=== PATIENT | female | born 1995 | race Caucasian/White ===

== ENCOUNTER → 2018-11-12 08:39 | Outpatient (CLI) | payer OTHER, MEDICAID, SELFPAY ==
[2018-11-12 17:40] LABS: Urine N gonorrhoeae NOT DETECTED
[2018-11-12 17:44] LABS: Urine Chlamydia NOT DETECTED
== END ==
PROVIDERS: PCP Specialist; Visit Provider Specialist
DX: Z34.83 Encounter for supervision of other normal pregnancy, third trimester (principal); Z3A.29 29 weeks gestation of pregnancy
CPT/HCPCS: 87491; 87591

== ENCOUNTER → 2018-12-26 13:51 | Outpatient (CLI) | payer OTHER, MEDICAID, SELFPAY ==
[2018-12-27 14:30] LABS: Strep Grp B PCR POS for Grp B Strep
== END ==
PROVIDERS: PCP Specialist; Visit Provider Specialist
DX: Z34.83 Encounter for supervision of other normal pregnancy, third trimester (principal)
CPT/HCPCS: 87653

== ENCOUNTER 2019-01-11 20:27 | Outpatient (CLI) | payer OTHER, MEDICAID, SELFPAY ==
--- NOTE | 2019-01-11 22:00 | PM.OBTRLD ---
Visit Information Visit Information Date of evaluation: 01/11/19 Primary OB Provider: Bette Carter On-call OB Provider: Nilsa Silva Reason for Evaluation: Yes rule out labor PFSH Social History Smoking Status: Current some day smoker Social History Smoking Status: Current some day smoker Evaluation Evaluation Baseline heart rate: 135 Variability: Moderate (11-25) monitor accelerations: Present monitor decelerations: Absent Contraction Frequency (minutes): 10 Uterine Contraction Intensity: Mild Category of Tracing: I Diagnosis, Plan/Disposition Final Diagnosis (1) 38 weeks gestation of : Current Visit: No Status: Acute Plan/Disposition Plan: 23 year old at 38+3 weeks who came in for a labor check. Contractions were infrequent and irregular. NST reactive. Follow up as scheduled. OB Disposition: home
== END 2019-01-11 21:30 | disposition home or self-care (01) ==
LOC: OB 01-13 06:56
PROVIDERS: PCP Specialist; Visit Provider Family Medicine
DX: O47.1 False labor at or after 37 completed weeks of gestation (principal); Z3A.38 38 weeks gestation of pregnancy
CPT/HCPCS: 59025; G0378; G0379

== ENCOUNTER 2019-01-12 05:57 | Observation (INO) | payer OTHER, MEDICAID, SELFPAY ==
--- NOTE | 2019-01-12 06:24 | PM.OBTRLD ---
Visit Information Visit Information Date of evaluation: 01/12/19 Primary OB Provider: Bette Carter Reason for Evaluation: Yes rule out labor PFSH Social History Smoking Status: Current some day smoker Social History Smoking Status: Current some day smoker Exam Vital Signs (past 8 hours): Blood pressure 124/82, pulse of 83 Evaluation Evaluation Baseline heart rate: 120 Variability: Moderate (11-25) monitor accelerations: Present monitor decelerations: Absent Contraction Frequency (minutes): 5 Uterine Contraction Intensity: Mild Category of Tracing: I Cervical dilation (cm): 2 Cervical effacement (%): 75 station: -1 Diagnosis, Plan/Disposition Final Diagnosis (1) Premature uterine contractions: Current Visit: Yes Status: Acute (2) 38 weeks gestation of : Current Visit: Yes Status: Acute Plan/Disposition Plan: Patient likely in prodrome labor she will walk for an hour or so and return OB Disposition: home
== END 2019-01-12 09:15 | disposition home or self-care (01) ==
PROVIDERS: Admitting Provider Specialist; PCP Specialist; Visit Provider Specialist
DX: O47.9 False labor, unspecified (principal); Z3A.38 38 weeks gestation of pregnancy
CPT/HCPCS: 59025; 59050; G0378; G0379

== ENCOUNTER 2019-01-12 15:08 | Observation (INO) | payer OTHER, MEDICAID, SELFPAY ==
--- NOTE | 2019-01-12 16:25 | PM.OBTRLD ---
Visit Information Visit Information Date of evaluation: 01/12/19 Primary OB Provider: Bette Carter On-call OB Provider: Consuelo Young Reason for Evaluation: Yes rule out labor PFSH Social History Smoking Status: Current some day smoker Social History Smoking Status: Current some day smoker Evaluation Evaluation Baseline heart rate: 130 Variability: Moderate (11-25) monitor accelerations: Present monitor decelerations: Absent Contraction Frequency (minutes): 6 Category of Tracing: I Cervical dilation (cm): 2 Cervical effacement (%): 50 station: -2 Diagnosis, Plan/Disposition Final Diagnosis (1) 38 weeks gestation of : Current Visit: No Status: Acute (2) Premature uterine contractions: Current Visit: No Status: Acute Plan/Disposition OB Disposition: home
== END 2019-01-12 17:10 | disposition home or self-care (01) ==
PROVIDERS: Admitting Provider Family Medicine; PCP Specialist; Visit Provider Family Medicine
DX: O47.9 False labor, unspecified (principal); Z3A.38 38 weeks gestation of pregnancy
CPT/HCPCS: 59025; 59050; G0378; G0379

== ENCOUNTER 2019-01-15 06:51 | Inpatient (IN) | payer OTHER, MEDICAID, SELFPAY ==
[2019-01-15 09:12] LABS: Add Manual Diff / Slide Review NO; Basophils Absolute Auto 100 /uL (0-100); Basophils Percent Auto 0.6 % (0-2); Eosinophils Absolute Auto 100 /uL (0-450); Eosinophils Percent Auto 1.1 % (2-4); Hematocrit 40.8 % (36-46); Hemoglobin 13.6 g/dL (12.0-16.0); Lymphocytes Absolute Auto 1900 /uL (1100-4500); Lymphocytes Percent Auto 22.3 % (25-40); Mean Corpuscular HGB Conc 33.4 % (30-36); Mean Corpuscular Hemoglobin 28.6 PG (26-34); Mean Corpuscular Volume 85.5 fL (80-100); Monocytes Absolute Auto 500 /uL (0-900); Monocytes Percent Auto 5.9 % (3-14); Neutrophils Absolute Auto 5800 /uL (1500-7000); Neutrophils Percent Auto 70.1 % (50-75); Platelet Count 271 X10^3/uL (150-400); Red Blood Cell Count 4.77 X10^6/uL (4.0-5.2); Red Cell Distribution Width 13.3 % (11.6-14.8); White Blood Cell Count 8.3 X10^3/uL (4.5-11.0)
[2019-01-15] MEDS: LACTATED RINGERS 1,000 ML 100 ML IV ×3 (09:21→13:34)
[2019-01-15] MEDS: PENICILLIN G POTASSIUM 5,000,000 UNIT in DEXTROSE 5% IN WATER 250 ML IV (09:30)
[2019-01-15] MEDS: OXYTOCIN PREMIX 30 UNIT/500 ML PLAST..BAG IV (09:35)
[2019-01-15 10:34] VITALS: BP 120/79
[2019-01-15] MEDS: PENICILLIN G POTASSIUM 3,000,000 UNIT/50 ML FROZ.PIGGY 100 UNIT IV (13:28)
--- NOTE | 2019-01-15 18:34 | P.HPOB_ITS ---
OB HPI Date/Time Date of admission: 01/15/19 Date Patient Seen: 01/15/19 Time Patient Seen: 09:00 History of Present Condition Chief complaint: labor & delivery : 3 Para: 1 Estimated Date of Delivery: 01/22/19 Estimated Gestational Age (weeks): 39 Narrative: Yael Klein is a 23 year old female admitted for induction for distance from the hospital Indications Indication for induction OB: maternal distance History of Present care: good care, initiated at week # (11), number of visits (9) and pounds weight gain (32) Dating criteria: based on 1st trimester US only Ultrasounds: normal mid trimester US Obstetrical complications: none Medical complications: none Preadmission Labs Blood type: O (+) positive -: Antibody screen: negative, GBS status: positive, HBsAG: negative, HIV: negative and RPR/VDLR: negative -: Chlamydia screen: not detected and Gonorrhea screen: not detected -: Rubella: immune and Varicella: immune HCAB: negative PAP: Normal Quad screen: Normal 1 hr GTT: 157 3 hr GTT: 1 hr (136), 2 hr (126) and 3 hr (77) Fasting blood glucose: 91 Prior (ies) History: 12/2014 39 week gestation female 7 lb 11 oz vaginal delivery with epidural Evaluation Evaluation Baseline heart rate: 145 Variability: Moderate (11-25) monitor accelerations: Present monitor decelerations: Absent Contraction Frequency (minutes): 0 Category of Tracing: I Cervical dilation (cm): 2 Cervical effacement (%): 80 station: -4 Laboratory results: Laboratory Tests 01/15/19 01/15/19 08:50 08:50 WBC 8.3 RBC 4.77 Hgb 13.6 Hct 40.8 MCV 85.5 MCH 28.6 MCHC 33.4 RDW 13.3 Plt Count 271 Neut % (Auto) 70.1 Lymph % (Auto) 22.3 L [place] % (Auto) 5.9 Eos % (Auto) 1.1 L Baso % (Auto) 0.6 Neut # (Auto) 5800 Lymph # (Auto) 1900 [place] # (Auto) 500 Eos # (Auto) 100 Baso # (Auto) 100 Blood Type O Positive Antibody Screen Negative [facility] Social History Smoking Status: Former smoker Social History Smoking Status: Former smoker Meds Home Medications Medication Instructions Recorded Confirmed Type 1 tab PO DAILY 07/03/18 07/03/18 History vitamin,calcium,[id number] acid tablet Allergies Allergy/AdvReac Type Severity Reaction Status Date / Time No Known Drug Allergies Allergy Unverified 07/03/18 15:31 antihistamines AdvReac Intermediate Hives, way Uncoded 07/03/18 15:31 too much energy Review of Systems Review of Systems Patient without signs or symptoms of preeclampsia. Good movement. No rupture membranes. All systems reviewed & are unremarkable except as noted in HPI and below Exam Vital Signs (past 8 hours): Blood pressure 111/76, temperature 97.5?, pulse of 85- 01/15/19 10:34 Blood Pressure 120/79 Narrative Exam Narrative: HEENT exam within normal limits. Lungs are clear to auscultation percussion. Heart is regular rate and rhythm no S3-S4 or murmurs. Abdomen is gravid. Extremities without edema and nontender. Objective Labs Result Diagrams: 01/15/19 08:50 Labs: Laboratory Results - last 24 hr 01/15/19 01/15/19 08:50 08:50 WBC 8.3 RBC 4.77 Hgb 13.6 Hct 40.8 MCV 85.5 MCH 28.6 MCHC 33.4 RDW 13.3 Plt Count 271 Neut % (Auto) 70.1 Lymph % (Auto) 22.3 L [place] % (Auto) 5.9 Eos % (Auto) 1.1 L Baso % (Auto) 0.6 Neut # (Auto) 5800 Lymph # (Auto) 1900 [place] # (Auto) 500 Eos # (Auto) 100 Baso # (Auto) 100 Blood Type O Positive Antibody Screen Negative Assessment and Plan Assessment and Plan Assessment and Plan narrative: 39 week gestation who was admitted for induction due to distance from the hospital. Patient is planning on having an epidural and anticipate vaginal delivery. Time Spent with Patient Total time spent with greater than 50% in coordination of care (as documented) at patient's floor/unit and/or counseling patient:: less than 15 minutes
--- NOTE | 2019-01-15 18:40 | PM.OBPRVD ---
Delivery date: 01/15/19 Induction method: per pitocin protocol Delivery augmentation: rupture of membranes Delivery monitor: external FHT and external uterine Route of delivery: L&D Laceration Description: None Estimated blood loss (mL): 150 Anesthesia type: Epidural Narrative: Patient arrived on Labor and delivery for induction for distance from the hospital. She was started on Pitocin. She was then AROM for clear fluid. She had epidural catheter for pain control. Fetus had variable decelerations after the epidural was placed that responded with position change, IV fluid bolus, and O2. Patient had a spontaneous vaginal delivery over an intact perineum. The infant was placed on maternal abdomen. after the cord stopped pulsating the cord was clamped cut and cord bloods obtained. the placenta delivered spontaneously, intact, with 3 vessels. There were no cervical, vaginal, or perineal tears. Both infant and mother doing well. Baby 1: Infant gender: Female Presentation: vertex position: Right Occiput Anterior Placenta delivery description: Spontaneous cord vessel description: Nuchal Cord score (1 min): 9 score (5 min): 10 Plan for aftercare: Routine care
[2019-01-15] MEDS: IBUPROFEN 600 MG TABLET PO (21:35)
[2019-01-16] MEDS: IBUPROFEN 600 MG TABLET PO ×2 (03:48→11:36)
--- NOTE | 2019-01-16 08:45 | P.DS_ITS ---
History of Present Illness Date Patient Seen: 01/16/19 Time Patient Seen: 08:00 Chief complaint: labor & delivery Narrative: Vaginal delivery Discharge Providers Date of admission: 01/15/19 06:51 Discharge Date: 01/16/19 Primary care physician: Bette Carter MD Consults: 01/15/19 09:05 Consult to Anesthesiology Urgent Comment: Consulting Provider: Anesthesiologist Reason for consultation: Epidural Has provider been notified: No 01/15/19 21:31 Consult to Sales Management Trainee Routine Comment: Discharge provider: Bette Carter MD Summary Discharge Diagnosis: Vaginal delivery Hospital Course: Patient came in for induction for distance from the hospital at 39 weeks. She received an epidural catheter for pain control. She had a spontaneous vaginal delivery without tears. Viable female weighing 7 lb 6 oz, 3357 g. Both infant and mother doing well. Patient denies any signs or symptoms of preeclampsia. Patient is without difficulty. Patient is O positive and rubella immune. Status at Discharge Cognitive/behavioral status at discharge: oriented Functional status at discharge: independent ambulation Overall status at discharge: patient is progressing back to baseline Time Spent with Patient Less than 30 minutes Exam Vital Signs (past 8 hours): Blood pressure 118/70, pulse of 85, temperature 97.5? Narrative Exam Narrative: Patient's abdomen is soft, nontender. Uterus is firm, at U, nontender. Mild lochia. Extremities without edema and nontender. Objective Labs Result Diagrams: 01/16/19 09:12 Labs: Laboratory Results - last 24 hr 01/15/19 01/15/19 08:50 08:50 WBC 8.3 RBC 4.77 Hgb 13.6 Hct 40.8 MCV 85.5 MCH 28.6 MCHC 33.4 RDW 13.3 Plt Count 271 Neut % (Auto) 70.1 Lymph % (Auto) 22.3 L [place] % (Auto) 5.9 Eos % (Auto) 1.1 L Baso % (Auto) 0.6 Neut # (Auto) 5800 Lymph # (Auto) 1900 [place] # (Auto) 500 Eos # (Auto) 100 Baso # (Auto) 100 Blood Type O Positive Antibody Screen Negative Discharge Plan Discharge Plan Patient Disposition: Home Discharge Med Rec/Prescriptions Prescriptions: Continued prenat.vits,royce,[id number] [ Vitamin] tablet 1 tab PO DAILY RF: 0 Follow up/Referrals: Bette Carter MD [Primary Care Provider] - 02/05/19 10:45 am Provider Discharge Instructions Diet: Regular Activity: Nothing in vagina for 4 weeks Skin/Wound/Dressing Care Report to your healthcare provider any signs of infection, such as:: chills, fever and increased pain Discharge Data Primary Care Provider: Bette Carter Attending Provider: Bette Carter Admit Date/Time: 01/15/19 06:51
[2019-01-16 09:31] LABS: Add Manual Diff / Slide Review NO; Basophils Absolute Auto 0 /uL (0-100); Basophils Percent Auto 0.3 % (0-2); Eosinophils Absolute Auto 100 /uL (0-450); Eosinophils Percent Auto 1.1 % (2-4); Hematocrit 37.2 % (36-46); Hemoglobin 12.5 g/dL (12.0-16.0); Lymphocytes Absolute Auto 1700 /uL (1100-4500); Lymphocytes Percent Auto 13.2 % (25-40); Mean Corpuscular HGB Conc 33.4 % (30-36); Mean Corpuscular Hemoglobin 28.3 PG (26-34); Mean Corpuscular Volume 84.8 fL (80-100); Monocytes Absolute Auto 600 /uL (0-900); Monocytes Percent Auto 4.7 % (3-14); Neutrophils Absolute Auto 10400 /uL (1500-7000); Neutrophils Percent Auto 80.7 % (50-75); Platelet Count 241 X10^3/uL (150-400); Red Blood Cell Count 4.39 X10^6/uL (4.0-5.2); Red Cell Distribution Width 13.5 % (11.6-14.8); White Blood Cell Count 12.9 X10^3/uL (4.5-11.0)
[2019-01-16 10:36] VITALS: BP 118/70; PULSE 85; RESP 18; TEMP 36.4
[2019-01-16] MEDS: LANOLIN OINT 7 GM 1 APPLIC TOP (11:37)
== END 2019-01-16 13:30 | disposition home or self-care (01) | DRG 560 ==
PROVIDERS: Admitting Provider Specialist; PCP Specialist; Visit Provider Specialist
DX: O99.824 Streptococcus B carrier state complicating childbirth (principal); Z3A.39 39 weeks gestation of pregnancy; Z37.0 Single live birth
CPT/HCPCS: 01967; 36415; 59050; 59409; 85025; 86850; 86900; 86901; G0379; J2540; J2590